=== PATIENT | female | born 1990 | race Caucasian/White ===

== ENCOUNTER 2018-03-16 11:52 | Emergency (ER) | payer OTHER ==
[2018-03-16] MEDS: ONDANSETRON (ODT) 4 MG TAB ODT (12:37)
[2018-03-16 12:41] LABS: URINE PH (Dip) POC 5.5 (5.0-8.5)
[2018-03-16 12:41] LABS: URINE BLOOD (Dip) POC Negative (NEGATIVE); URINE GLUCOSE (Dip) POC Negative (NEGATIVE); URINE KETONES (Dip) POC Trace (NEGATIVE); URINE LEUKOCYTE EST (Dip) POC Negative (NEGATIVE); URINE NITRITE (Dip) POC Negative (NEGATIVE); URINE TOTAL PROTEIN POC Trace (NEGATIVE)
[2018-03-16 13:08] LABS: ADD MAN DIFF? NO
[2018-03-16 13:12] LABS: WHITE BLOOD COUNT 9.9 10^3/ul (4.8-10.8)
[2018-03-16 13:12] LABS: BASOPHILS % 0.2 % (0.0-2.0); EOSINOPHILS # 0.1 10^3/ul (0.0-0.5); EOSINOPHILS % 0.8 % (0.0-7.0); HEMATOCRIT 40.2 % (37.0-47.0); HEMOGLOBIN 13.1 g/dl (12.0-16.0); LYMPHOCYTES # 2.1 10^3/ul (0.8-2.9); LYMPHOCYTES % 20.7 % (15.0-51.0); MEAN CORPUSCULAR HGB CONC 32.6 g/dl (32.0-37.0); MEAN CORPUSCULAR VOLUME 82.7 fl (82.0-101.0); MEAN PLATELET VOLUME 10.6 fl (7.4-10.4); MONOCYTE # 0.6 10^3/ul (0.3-0.9); NEUTROPHIL # 7.1 10^3/ul (1.6-7.5); NEUTROPHILS % 71.9 % (39.0-77.0); PLATELET COUNT 311 10^3/UL (140-415); RED BLOOD COUNT 4.86 10^6/ul (4.20-5.40); RED CELL DISTRIBUTION WIDTH 14.5 % (11.5-14.5)
== END 2018-03-16 14:54 | disposition home or self-care (01) ==
LOC: FTE 14:54
DX: O21.9 Vomiting of pregnancy, unspecified (principal); Z3A.15 15 weeks gestation of pregnancy
CPT/HCPCS: 36415; 76801; 81003; 81025; 84702; 85025; 86900; 86901; 99284-25

== ENCOUNTER 2018-08-28 14:01 | Inpatient (IN) | payer OTHER ==
[2018-08-28] MEDS ORDERED: GLUCAGON 1 MG INJ IM (15:00)
[2018-08-28] MEDS ORDERED: DEXTROSE 50% 50 ML SYRINGE IV ×2 (15:00)
[2018-08-28] MEDS ORDERED: GLUCOSE GEL 15 GRAM TUBE PO ×2 (15:00)
[2018-08-28] MEDS ORDERED: GLUCOSE GEL 15 GRAM TUBE BUCCAL (15:00)
[2018-08-28 15:44] LABS: ADD MAN DIFF? NO
[2018-08-28 15:46] LABS: WHITE BLOOD COUNT 10.7 10^3/ul (4.8-10.8)
[2018-08-28 15:46] LABS: BASOPHILS % 0.2 % (0.0-2.0); EOSINOPHILS # 0.1 10^3/ul (0.0-0.5); EOSINOPHILS % 0.6 % (0.0-7.0); HEMATOCRIT 37.3 % (37.0-47.0); HEMOGLOBIN 11.8 g/dl (12.0-16.0); LYMPHOCYTES # 2.4 10^3/ul (0.8-2.9); LYMPHOCYTES % 22.3 % (15.0-51.0); MEAN CORPUSCULAR HEMOGLOBIN 25.4 pg (29.0-33.0); MEAN CORPUSCULAR HGB CONC 31.6 g/dl (32.0-37.0); MEAN CORPUSCULAR VOLUME 80.2 fl (82.0-101.0); MEAN PLATELET VOLUME 11.4 fl (7.4-10.4); MONOCYTE # 0.6 10^3/ul (0.3-0.9); MONOCYTES % 5.7 % (0.0-11.0); NEUTROPHIL # 7.6 10^3/ul (1.6-7.5); NEUTROPHILS % 70.5 % (39.0-77.0); PLATELET COUNT 249 10^3/UL (140-415); RED BLOOD COUNT 4.65 10^6/ul (4.20-5.40); RED CELL DISTRIBUTION WIDTH 14.6 % (11.5-14.5)
[2018-08-28 16:03] LABS: GLUCOSE 120 mg/dl (70-220)
[2018-08-28 16:18] LABS: INR 0.92; PROTIME 12.5 Sec (11.9-14.9)
[2018-08-28 16:19] LABS: PARTIAL THROMBOPLASTIN TIME 28.2 Sec (23.0-35.0)
[2018-08-28 16:35] LABS: HEPATITIS B SURFACE ANTIGEN NEGATIVE (NEGATIVE)
[2018-08-28] MEDS ORDERED: INSULIN ASPART [NOVOLOG] 3 ML PEN SC (17:05)
[2018-08-28 18:02] LABS: ALANINE AMINOTRANSFERASE 16 IU/L (13-69); ALBUMIN 3.5 g/dl (3.3-4.9); ALBUMIN/GLOBULIN RATIO 1.06; ALKALINE PHOSPHATASE 131 IU/L (42-121); ANION GAP 15 (5-13); ASPARTATE AMINO TRANSFERASE 21 IU/L (15-46); BLOOD UREA NITROGEN 12 mg/dl (7-20); CALCIUM 9.1 mg/dl (8.4-10.2); CARBON DIOXIDE 23 mmol/L (21-31); CHLORIDE 102 mmol/L (97-110); CREATININE 0.41 mg/dl (0.44-1.00); Estimated GFR > 60 mL/min (>60); GLUCOSE 119 mg/dl (70-220); SODIUM 140 mmol/L (135-144); TOTAL PROTEIN 6.8 g/dl (6.1-8.1)
[2018-08-28] MEDS: ACCU-CHEK XX ×2 (19:21→21:00)
[2018-08-28] MEDS ORDERED: ACCU-CHEK XX (19:35)
[2018-08-28] MEDS: INSULIN ASPART [NOVOLOG] 3 ML PEN SC (21:00)
[2018-08-28] MEDS: PRENATAL VITAMIN PO (23:18)
[2018-08-28] MEDS: FERROUS SULFATE (EC) 325 MG TAB PO (23:18)
[2018-08-29] MEDS: CALCIUM/VITAMIN D (250/125) TAB PO ×2 (00:53→09:08)
[2018-08-29] MEDS: ACCU-CHEK XX ×3 (07:35→17:35)
[2018-08-29] MEDS: INSULIN ASPART [NOVOLOG] 3 ML PEN SC ×3 (07:35→17:35)
[2018-08-29] MEDS: FERROUS SULFATE (EC) 325 MG TAB PO (09:07)
[2018-08-29] MEDS: PRENATAL VITAMIN PO (09:07)
[2018-08-29] MEDS ORDERED: metFORMIN 500 MG TAB PO (21:00)
== END 2018-08-29 18:00 | disposition home or self-care (01) | DRG 833 ==
LOC: L-D 14:01 → PP1 18:44
PROVIDERS: Obstetrics & Gynecology
DX: O24.419 Gestational diabetes mellitus in pregnancy, unspecified control (principal); O99.820 Streptococcus B carrier state complicating pregnancy; O99.213 Obesity complicating pregnancy, third trimester; E66.9 Obesity, unspecified; O34.219 Maternal care for unspecified type scar from previous cesarean delivery; O09.33 Supervision of pregnancy with insufficient antenatal care, third trimester; Z3A.38 38 weeks gestation of pregnancy
CPT/HCPCS: 76815; 76818; 80053; 82947; 82962; 85025; 85610; 85730; 86850; 86900; 86901; 87340